=== PATIENT | female | born 1945 ===

== ENCOUNTER 2017-11-21 14:05 | Outpatient (CLI) | payer OTHER | END 2017-11-21 14:18 | disposition home or self-care (01) | LOC: MAMO-SONO 14:05 | DX: Z12.31 Encounter for screening mammogram for malignant neoplasm of breast (principal); Z87.898 Personal history of other specified conditions; N63.10 Unspecified lump in the right breast, unspecified quadrant; N63.20 Unspecified lump in the left breast, unspecified quadrant; I82.621 Acute embolism and thrombosis of deep veins of right upper extremity; Z86.718 Personal history of other venous thrombosis and embolism; K51.911 Ulcerative colitis, unspecified with rectal bleeding; I10 Essential (primary) hypertension ==

== ENCOUNTER → 2017-11-21 | Outpatient (CLI) | payer OTHER ==
[~2017-11-21] MED LIST: APRISO0.375 GM PO; CIPRO500 MG PO; CLONAZEPAM0.5 MG PO; COZAAR100 MG; Cozaar PO; DELZICOL400 M1; FOLIC ACID1 MG; FOLIC ACID1 MG PO; HYOSCYAMINE0.125 M1 SL; INTESTINEX680 MG PO; LEVAQUIN750 MG PO; LOSARTAN POTASS50 MG PO; OMEPRAZOLE20 M1 PO; XARELTO15 MG PO; XARELTO20 MG PO
== END | disposition home or self-care (01) ==
LOC: NUCLEAR 15:41
DX: I82.621 Acute embolism and thrombosis of deep veins of right upper extremity (principal); Z86.718 Personal history of other venous thrombosis and embolism; K51.911 Ulcerative colitis, unspecified with rectal bleeding; I10 Essential (primary) hypertension

== ENCOUNTER 2018-02-20 13:36 | Inpatient (IN) | payer OTHER ==
[~2018-02-20] VITALS: Ht 172.7 cm; Wt 98.9 kg
[2018-02-20] MEDS ORDERED: LIALDA1.2 GM (13:52)
[2018-03-07] MEDS ORDERED: CIPROFLOXACIN750 MG PO (17:05)
== END 2018-03-07 17:41 | disposition home or self-care (01) | DRG 602 ==
LOC: ER 13:36 → MEDJ 18:24
PROC: BW21Y0Z Computerized Tomography (CT Scan) of Abdomen and Pelvis using Other Contrast, Unenhanced and Enhanced (ICD-10-PCS; 2018-02-20)
PROC: 0W9F30Z Drainage of Abdominal Wall with Drainage Device, Percutaneous Approach (ICD-10-PCS; principal; 2018-02-25)
PROC: BW21Y0Z Computerized Tomography (CT Scan) of Abdomen and Pelvis using Other Contrast, Unenhanced and Enhanced (ICD-10-PCS; 2018-03-02)
DX: L03.311 Cellulitis of abdominal wall (principal); K65.1 Peritoneal abscess; T81.4XXA Infection following a procedure, initial encounter; L76.34 Postprocedural seroma of skin and subcutaneous tissue following other procedure; K51.818 Other ulcerative colitis with other complication; L02.211 Cutaneous abscess of abdominal wall; Y83.8 Other surgical procedures as the cause of abnormal reaction of the patient, or of later complication, without mention of misadventure at the time of the procedure; Y92.098 Other place in other non-institutional residence as the place of occurrence of the external cause; I10 Essential (primary) hypertension; K29.60 Other gastritis without bleeding; K43.9 Ventral hernia without obstruction or gangrene; B96.5 Pseudomonas (aeruginosa) (mallei) (pseudomallei) as the cause of diseases classified elsewhere